=== PATIENT | male | born 1965 | race Caucasian/White ===

== ENCOUNTER 2017-11-13 04:56 | Emergency (ER) | payer OTHER ==
[~2017-11-13] VITALS: Ht 172.7 cm; Wt 81.8 kg
[~2017-11-13 04:56] MED LIST: CIPRO500 MG PO; NO HOME MEDICATIONS; NORCO 325 MG-51 TAB PO; PHENERGAN 25 TA25 MG PO
[2017-11-13 04:59] VITALS: TEMP 97.6
[2017-11-13 05:41] LABS: COLLECTION METHOD CLEAN CATCH
[2017-11-13 05:45] LABS: BASO # 0.1 (0.0-0.2); BASO % 0.8 % (0.0-2.0); EOS # 0.4 (0.0-0.7); EOS % 5.7 % (0-4.0); GRAN # 5.3 (1.4-6.5); GRAN % 67.9 % (42.2-75.2); HEMATOCRIT 48.3 % (42.0-52.0); HEMOGLOBIN 16.9 g/dl (13.5-18.0); LYMPH % 13.3 % (20.0-51.0); MEAN CELL VOLUME 88 fl (80.0-100.0); MEAN CORPUSCULAR HEMOGLOBIN 31 pg (27.0-31.0); MEAN CORPUSCULAR HGB CONC 35 g/dl (33.0-37.0); MEAN PLATELET VOLUME 10.2 fl (7.4-10.4); MONO # 0.9 (0.1-0.6); PLATELET COUNT 154 K/mm3 (130-400); RED BLOOD COUNT 5.51 M/mm3 (4.20-5.60)
[2017-11-13 06:07] LABS: ALBUMIN 3.9 gm/dL (3.5-5.0); BILIRUBIN,TOTAL 0.6 mg/dL (0.0-1.0); CREATININE, serum 0.85 mg/dL (0.66-1.25); MUCOUS Present /lpf; PH 5 (5-8); POTASSIUM 3.9 mmol/L (3.4-5.0); SQUAMOUS EPITHELIAL 0-2 /hpf; TOTAL PROTEIN 6.6 gm/dL (6.4-8.2); URINE APPEARANCE Hazy; URINE BACTERIA Rare /hpf; URINE BILIRUBIN Negative (NEGATIVE); URINE BLOOD 3+ (NEGATIVE); URINE COLOR Yellow; URINE GLUCOSE Negative (NEGATIVE); URINE KETONE Trace (NEGATIVE); URINE LEUKOCYTE ESTERASE Negative (NEGATIVE); URINE NITRATE Negative (NEGATIVE); URINE PROTEIN(semi-quant) 1+ (NEGATIVE); URINE RBC >50 /hpf; URINE UROBILINOGEN Negative (NEGATIVE)
[2017-11-13 06:47] VITALS: BP 133/85
[2017-11-13] MEDS ORDERED: NORCO 325 MG-51 TAB PO (07:01)
[2017-11-13] MEDS ORDERED: ZOFRAN ODT4 MG PO (07:01)
[2017-11-13] MEDS ORDERED: CEFTIN 250250 MG/TAB PO (07:05)
[2017-11-13 07:16] VITALS: PULSE 70
== END 2017-11-13 07:17 | disposition home or self-care (01) ==
LOC: COL.ER 04:56
PROVIDERS: Emergency Medicine
DX: N20.2 Calculus of kidney with calculus of ureter (principal); Z87.442 Personal history of urinary calculi; Z96.0 Presence of urogenital implants
CPT/HCPCS: J2765; J7030